=== PATIENT | female | born 1980 | race African-American/Black ===

== ENCOUNTER 2019-09-24 10:44 | Inpatient (IN) | payer OTHER ==
[~2019-09-24] VITALS: Ht 177.8 cm; Wt 83.9 kg
[~2019-09-24 10:44] MED LIST: B-COMPLEX WITH1 EACH PO; CIPROFLOXACIN500 M1 PO; FLEXERIL PO; HYDROCODONE-AP1 EAC6 PO; IBUPROFEN 800800 M1 PO; IBUPROFEN 800800 MG PO; KEFLEX500 MG PO; LORTAB 5 MG/5001 TA1 PO; LORTABELXR PO; NORCO 5-325 TA1 EACH PO; NORTHYX20 MG PO; ONDANSETRON HCL4 M2 PO; PENICILLIN VK250 MG PO; PENICILLIN VK500 M1 PO; PHENERGAN 25 MG25 M1 PO; PROPRANOLOL 20M20 M1 PO; SYNTHROID300 MCG; ULTRAM 50MG TAB50 MG PO; VITAMIN C500 M1 PO; ZOFRAN ODT4 MG PO
[2019-09-24 10:45] VITALS: BP 146/91
[2019-09-24 11:15] LABS: BASOPHILS 0.6 % (0.0-2.0); EOSINOPHILS 0.8 % (0.0-3.0); HEMATOCRIT 30.1 % (37.0-47.0); HEMOGLOBIN 9.8 gm/dL (12.0-15.0); LYMPHOCYTES 26.9 % (24.0-44.0); MCH 29.3 pg (26.0-34.0); MCHC 32.5 g/dL (28.0-37.0); MCV 90.1 fL (80.0-100.0); MONOCYTES 5.4 % (1.0-8.0); PLATELET COUNT 233 thou/uL (150-400); POLYS 66.3 % (36.0-66.0); RBC 3.34 mil/uL (4.20-5.00)
[2019-09-24 11:34] LABS: ALBUMIN 4.5 g/dL (3.4-5.0); CALCIUM 9.2 mg/dL (8.5-10.1); CREATININE 1.2 mg/dL (0.6-1.0); TOTAL BILIRUBIN 0.4 mg/dL (<0.1-1.0)
[2019-09-24 11:43] LABS: POTASSIUM 2.5 mmol/L (3.5-5.1)
[2019-09-24 11:46] LABS: URINE BILIRUBIN NEGATIVE (Negative); URINE BLOOD 1+ (Negative); URINE CLARITY CLEAR; URINE COLOR YELLOW; URINE GLUCOSE-RANDOM* NEGATIVE (Negative); URINE KETONES NEGATIVE (Negative); URINE LEUKOCYTES-REFLEX TRACE (Negative); URINE NITRITE-REFLEX NEGATIVE (Negative); URINE PROTEIN (DIPSTICK) 1+ (Negative); URINE SPECIFIC GRAVITY 1.025 (1.005-1.035); URINE UROBILINOGEN 0.2 E.U./dl (0.2-1.0)
[2019-09-24 11:51] LABS: BACTERIA-REFLEX None Seen /HPF (None Seen); CRYSTALS None Seen /LPF (None Seen); SQUAMOUS 4-10 Moderate /LPF (0-3); URINE RBC 0-2 Rare /HPF (0-2); URINE WBC-REFLEX 0-5 Rare /HPF (0-5)
[2019-09-24 11:52] LABS: AMP/METHAMP Negative (Negative); BARBITURATES Negative (Negative); BENZODIAZEPINES Negative (Negative); COCAINE Negative (Negative); METHADONE Negative (Negative); OPIATES Negative (Negative); PCP Negative (Negative)
[2019-09-24 12:48] VITALS: BP 136/83
[2019-09-24 13:49] VITALS: BP 127/86
[2019-09-24 15:15] VITALS: BP 127/81
[2019-09-24 19:20] VITALS: BP 116/79
[2019-09-25 03:32] LABS: HEMATOCRIT 28.8 % (37.0-47.0); HEMOGLOBIN 9.5 gm/dL (12.0-15.0); MCH 29.8 pg (26.0-34.0); MCHC 32.9 g/dL (28.0-37.0); MCV 90.7 fL (80.0-100.0); RBC 3.18 mil/uL (4.20-5.00); RDW 17.8 % (10.5-14.5)
[2019-09-25 03:42] LABS: CALCIUM 8.7 mg/dL (8.5-10.1); CREATININE 1.1 mg/dL (0.6-1.0)
[2019-09-25 04:36] VITALS: BP 126/82
[2019-09-25 07:04] VITALS: BP 122/68
[2019-09-25 10:35] LABS: CALCIUM 9.2 mg/dL (8.5-10.1); CREATININE 1.2 mg/dL (0.6-1.0); POTASSIUM 3.7 mmol/L (3.5-5.1)
[2019-09-25] MEDS ORDERED: REMERON15 MG PO (12:08)
[2019-09-25] MEDS ORDERED: SYNTHROID100 MC1 PO (12:08)
[2019-09-25 12:24] VITALS: BP 122/68
--- NOTE | 2019-09-27 15:51 | EKG ---
[address] [place] [address] ELECTROCARDIOGRAM REPORT Name: CAMILA NEGRON Room #: 357-P [facility] IN ..#: [id number] Admission: 09/24/19 Attend Phys: Hammad Archibald MD Discharge: 09/25/19 Date of : 78 Report #: [id number] THIS REPORT FOR: //name// [facility] ED Test Date: 2019-09-24 Test Time: 12:31:25 Pat Name: CAMILA NEGRON Department: Room: [facility] Gender: F Clinical Nurse Leader: DEVORAH : 1980 Requested By: Umu Guzman Order Number: [id number] MD: Garrett Urrutia Measurements Intervals [place] Rate: 52 P: 15 GA: 170 QRS: 70 QRSD: 101 T: 221 QT: 579 QTc: 539 Interpretive Statements Sinus rhythm Low voltage, extremity and precordial leads Consider anterior infarct Nonspecific T abnormalities, lateral leads No previous ECG available for comparison Electronically Signed On 09-27-2019 15:51:12 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
== END 2019-09-25 13:12 | disposition home or self-care (01) | DRG 641 ==
LOC: ER 10:44 → EROBS 12:37 → 3W 13:35
PROVIDERS: Emergency Medicine; Nurse Practitioner Family; ADMIT Hospitalist
DX: E87.6 Hypokalemia (principal); F41.9 Anxiety disorder, unspecified; F32.9 Major depressive disorder, single episode, unspecified; E03.9 Hypothyroidism, unspecified; F41.8 Other specified anxiety disorders; Z90.49 Acquired absence of other specified parts of digestive tract; Z79.899 Other long term (current) drug therapy
CPT/HCPCS: 10879

== ENCOUNTER 2019-10-09 21:04 | Emergency (ER) | payer OTHER ==
[~2019-10-09] VITALS: Ht 175.3 cm; Wt 90.7 kg
[~2019-10-09 21:04] MED LIST changes: +REMERON15 MG PO; +SYNTHROID100 MC1 PO
[2019-10-09 21:40] LABS: ABSOLUTE NEUTROPHILS 4.3 thou/uL (1.4-8.2); BASOPHILS 0.5 % (0.0-2.0); EOSINOPHILS 0.3 % (0.0-3.0); HEMATOCRIT 29.4 % (37.0-47.0); HEMOGLOBIN 9.6 gm/dL (12.0-15.0); LYMPHOCYTES 30.6 % (24.0-44.0); MCH 29.6 pg (26.0-34.0); MCHC 32.7 g/dL (28.0-37.0); MCV 90.8 fL (80.0-100.0); MONOCYTES 11.7 % (1.0-8.0); PLATELET COUNT 272 thou/uL (150-400); POLYS 56.9 % (36.0-66.0); RBC 3.24 mil/uL (4.20-5.00); RDW 15.5 % (10.5-14.5); WBC 7.6 thou/uL (4.0-11.0)
[2019-10-09 21:47] LABS: URINE BILIRUBIN NEGATIVE (Negative); URINE BLOOD 1+ (Negative); URINE CLARITY CLEAR; URINE COLOR YELLOW; URINE GLUCOSE-RANDOM* NEGATIVE (Negative); URINE KETONES NEGATIVE (Negative); URINE LEUKOCYTES-REFLEX NEGATIVE (Negative); URINE NITRITE-REFLEX NEGATIVE (Negative); URINE PROTEIN (DIPSTICK) 2+ (Negative); URINE SPECIFIC GRAVITY >= 1.030 (1.005-1.035); URINE UROBILINOGEN 0.2 E.U./dl (0.2-1.0)
[2019-10-09 21:56] LABS: ALBUMIN 4.6 g/dL (3.4-5.0); ANION GAP 10 mmol/L (7-16); BUN 12 mg/dL (7-18); CALCIUM 9.8 mg/dL (8.5-10.1); CHLORIDE 99 mmol/L (98-107); CO2 25 mmol/L (21-32); GLUCOSE 132 mg/dL (74-106); MAGNESIUM 2.3 mg/dL (1.8-2.4); SALICYLATE < 2.8 mg/dL (2.8-20.0); SGOT 68 U/L (15-37); SGPT 94 U/L (30-65); SODIUM 134 mmol/L (136-145); TOTAL BILIRUBIN 0.5 mg/dL (<0.1-1.0); TOTAL PROTEIN 9.5 g/dL (6.4-8.2); TROPONIN-I <0.06 ng/mL (<0.06)
[2019-10-09 21:56] LABS: SQUAMOUS >10 Many /LPF (0-3)
[2019-10-09 21:57] LABS: AMP/METHAMP Negative (Negative); BARBITURATES Negative (Negative); BENZODIAZEPINES Negative (Negative); COCAINE Negative (Negative); HYALINE CASTS 4-10 Moderate /LPF (None Seen); METHADONE Negative (Negative); OPIATES Negative (Negative); PCP Negative (Negative)
[2019-10-09 21:58] LABS: BACTERIA-REFLEX None Seen /HPF (None Seen); CRYSTALS None Seen /LPF (None Seen); URINE RBC 0-2 Rare /HPF (0-2); URINE WBC-REFLEX 0-5 Rare /HPF (0-5)
[2019-10-09 21:59] LABS: POTASSIUM 2.9 mmol/L (3.5-5.1)
[2019-10-09] MEDS ORDERED: REMERON15 M2 PO (22:02)
[2019-10-10 10:57] VITALS: BP 110/74
--- NOTE | 2019-10-10 11:46 | EKG ---
[address] [address] [place] [address] ELECTROCARDIOGRAM REPORT Name: JAMILLISANEGRORonny BLOCK Emmanuel #: DEP PRABHA Shi#: [id number] Admission: 10/09/19 Attend Phys: Discharge: 10/10/19 Date of : 78 Report #: [id number] THIS REPORT FOR: //name// [facility] ED Test Date: 2019-10-09 Test Time: 21:30:53 Pat Name: CAMILA NEGRON Department: Room: Gender: F Market Manager: [place] : 1980 Requested By: Mark Mclain Order Number: [id number] MD: Jonathan Birseno Measurements Intervals [place] Rate: 92 P: 27 MO: 151 QRS: 32 QRSD: 90 T: 27 QT: 359 QTc: 445 Interpretive Statements Sinus rhythm Poor R wave progression Compared to ECG 09/24/2019 12:31:25 T-wave abnormality no longer present Electronically Signed On 10-10-2019 11:45:39 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
== END 2019-10-10 10:58 | disposition home or self-care (01) ==
LOC: ER 21:04
PROVIDERS: Emergency Medicine
DX: F91.9 Conduct disorder, unspecified (principal); F29 Unspecified psychosis not due to a substance or known physiological condition; E87.6 Hypokalemia; F17.290 Nicotine dependence, other tobacco product, uncomplicated